=== PATIENT | male | born 1945 | race Caucasian/White ===

== ENCOUNTER 2018-06-14 21:23 | Emergency (ER) | payer MEDICARE, BC, OTHER ==
--- NOTE | 2018-06-14 21:40 | ED ---
Abdominal Pain/Male - HPI Summary HPI Summary: A 73 y/o male brought in by ambulance presents to the ED resolved abdominal pain. According to the patient, he did have abdominal pain previously, however, he is not currently experiencing any pain. Additionally, his nausea has resolved. As per triage, "Pt transfer secondary to noted pancreatitis. Pt states he was in Ed for eval of high glucose levels. Denies abd pain, nv. 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 According to the patient, he has been experiencing increasingly high blood-glucose levels. This AM, his blood glucose was 341 while tonight it was 491. - History of Current Complaint Chief Complaint: EDAbdPain Stated Complaint: ABD PAIN Time Seen by Provider: 06/14/18 21:25 Hx Obtained From: Patient Onset/Duration: Sudden Onset, Lasting Hours, Still Present Timing: Constant Severity Currently: None Pain Intensity: 0 Pain Scale Used: 0-10 Numeric Radiates: No Alleviating Factor(s): Nothing Associated Signs And Symptoms: Positive: Negative PMH/Surg Hx/FS Hx/Imm Hx Endocrine/Hematology History: Reports: Hx Diabetes Cardiovascular History: Denies: Hx Hypertension - Surgical History Surgery Procedure, Year, and Place: Ulcer and appendectomy Infectious Disease History: No Infectious Disease History: Denies: Traveled Outside the [place] in Last 30 Days - Family History Known Family History: Positive: Diabetes Negative: Hypertension - Social History Alcohol Use: None Substance Use Type: Reports: None Smoking Status (MU): Never Smoked Tobacco Review of Systems Positive: Fever Positive: Other - POSITIVE: High blood glucose levels. Negative: Abdominal Pain, Vomiting, Nausea All Other Systems Reviewed And Are Negative: Yes Physical Exam - Summary Physical Exam Summary: Appearance: elderly obese male lying in bed comfortably. No apparent distress. Skin: Warm, dry, no obvious rash. No jaundice. Eyes: sclera anicteric, no conjunctival pallor ENT: mucous membranes moist, pharynx appears normal Neck: Supple, nontender Respiratory: Clear to auscultation, no signs of respiratory distress Cardiovascular: Normal S1, S2. No murmurs. Normal distal pulses in tibial and radial bilaterally. Abdomen: Soft, nontender, normal active bowel sounds present. Deep palpation of RUQ revealed no signs of tenderness. Musculoskeletal: Normal, Strength/ROM Intact Neurological: A&Ox3, awake and alert, mentation is normal, speech is fluent and appropriate Psychiatric: affect is normal, does not appear anxious or depressed Triage Information Reviewed: Yes Vital Signs On Initial Exam: Initial Vitals Temp Pulse Resp BP Pulse Ox 100.8 F 90 15 142/65 93 06/14/18 21:32 06/14/18 21:32 06/14/18 21:32 06/14/18 21:32 06/14/18 21:32 Vital Signs Reviewed: Yes Diagnostics - Vital Signs Vital Signs Temp Pulse Resp BP Pulse Ox 06/14/18 21:32 100.8 F 90 15 142/65 93 - Laboratory Result Diagrams: 06/14/18 22:10 06/14/18 22:10 Lab Statement: Any lab studies that have been ordered have been reviewed, and results considered in the medical decision making process. - Ultrasound No standard instances Ultrasound Interpretation Completed By: Radiologist - GALLBLADDER US: Cholelithiasis with findings suggest choledocholithiasis possibly at the ampulla with associated main pancreatic ductal dilation. ED PHYSICIAN REVIEWED THIS RADIOLOGY REPORT. Abdominal Pain Fem Course/Dx - Course Course Of Treatment: A 73 y/o male brought in by ambulance presents to the ED resolved abdominal pain. According to the patient, he did have abdominal pain previously, however, he is not currently experiencing any pain. Additionally, his nausea has resolved. According to the patient, he has been experiencing increasingly high blood-glucose levels. This AM, his blood glucose was 341 while tonight it was 491. Physical exam revealed no jaundice, deep RUQ palpation showed no signs of tenderness, no pain distress. A Gallbladder US revealed cholelithiasis with findings suggest choledocholithiasis possibly at the ampulla with associated main pancreatic ductal dilation. In the ED course, the patient recieved no medications. Patient care was discussed with Dr. Payton at [facility]. Patient will be transferred to [facility] under the care of Dr. Payton. Patient will be transferred with a diagnosis of choledocholithiasis. Patient is agreeable with this plan. - Diagnoses Provider Diagnoses: Choledocholithiasis - Provider Notifications Discussed Care Of Patient With: Fito Time Discussed With Above Provider: 00:27 Instructed by Provider To: Other - Accepts patient for admission/transfer. Discharge - Sign-Out/Discharge Documenting (check all that apply): Patient Departure - TRANSFER - Discharge Plan Condition: Stable Disposition: TRANS HIGHER LVL OF CARE FAC Referrals: Hal PABLO,Yomi Gao [Primary Care Provider] - - Billing Disposition and Condition Condition: STABLE Disposition: Trans Higher Lvl of Care Fac - Attestation Statements Document Initiated by Maxim: Yes Documenting Scribe: Romie Galan Provider For Whom Maxim is Documenting (Include Credential): Mor North MD Scribe Attestation: Romie Sheets, katjaibed for Mor North MD on 06/15/18 at 0122. Scribe Documentation Reviewed: Yes Provider Attestation: The documentation as recorded by the Romie gonzalez accurately reflects the service I personally performed and the decisions made by me, Mor North MD Status of Scribe Document: Viewed
[2018-06-14 22:18] LABS: ABS Basophils 0 10^3/ul (0-0.2); ABS Eosinophils 0 10^3/ul (0-0.6); ABS Lymphocytes 0.5 10^3/ul (1.0-4.8); ABS Monocytes 0.8 10^3/ul (0-0.8); ABS Neutrophils 6.4 10^3/ul (1.5-7.7); ABS Nucleated RBC 0 10^3/ul; Eosinophil % 0.1 %; Hematocrit 40 % (42-52); Hemoglobin 13.6 g/dl (14.0-18.0); Mean Corpuscular HGB Conc 34 g/dl (31-36); Mean Corpuscular Hemoglobin 29 pg (27-31); Mean Corpuscular Volume 85 fL (80-94); Nucleated Red Blood Cells % 0.1; Platelet Count 230 10^3/ul (150-450); Red Blood Count 4.71 10^6/ul (4.00-5.40); Red Cell Distribution Width 13 % (10.5-15); White Blood Count 7.6 10^3/ul (3.5-10.8)
[2018-06-14 22:34] LABS: Albumin 3.7 g/dL (3.2-5.2); Albumin/Globulin Ratio 1.1 (1-3); Calcium 9.1 mg/dL (8.6-10.3); EGFR Non-African American 54.8 (>60); Globulin 3.3 g/dL (2-4); Potassium 3.9 mmol/L (3.5-5.0); Total Bilirubin 2.3 mg/dL (0.2-1.0)
[2018-06-15] MEDS ORDERED: Piperacillin/Tazobac ADVAN(*) 3.375 GM in NS 0.9% 100 ML* 100 ML IVPB ONE (00:22)
[2018-06-15] MEDS ORDERED: Acetaminophen TAB* 325 MG PO ONE (01:10)
== END 2018-06-15 07:47 | disposition short-term general hospital (02) ==
LOC: ED 21:23
DX: K80.50 Calculus of bile duct without cholangitis or cholecystitis without obstruction (principal); E11.9 Type 2 diabetes mellitus without complications
CPT/HCPCS: 36415; 76705; 80053; 83690; 85025; 96360; 96361; 99285; A9270-GY; J2543